=== PATIENT | female | born 1960 | race Caucasian/White ===

== ENCOUNTER 2017-06-27 20:13 | Emergency (ER) | payer MEDICAID ==
[~2017-06-27] VITALS: Ht 157.5 cm; Wt 59.0 kg
[2017-06-27 20:25] VITALS: BP 135/84
== END 2017-06-27 21:54 | disposition home or self-care (01) ==
LOC: ER 20:15
DX: G89.29 Other chronic pain (principal); R05 Cough; Z88.5 Allergy status to narcotic agent
CPT/HCPCS: 71045-TC; A4606; Z7610